=== PATIENT | male | born 1990 | race Caucasian/White ===

== ENCOUNTER 2018-02-05 13:41 | Emergency (ER) | payer SELFPAY ==
[~2018-02-05] VITALS: Ht 172.7 cm; Wt 108.0 kg
[2018-02-05 13:52] VITALS: Ht 172.7 cm; Wt 108.0 kg
[2018-02-05 15:12] LABS: BASOPHIL % 0.4 % (0-2); PLATELET COUNT 213 x10^3mcL (130-400); RED CELL DISTRIBUTION WIDTH 13.4 % (11.5-14.5)
[2018-02-05 15:15] LABS: CALCIUM 9.2 mg/dL (8.5-10.1); CARBON DIOXIDE 28.8 mmol/L (21-32); CHLORIDE SERUM 103 mmol/L (98-107); GFR1 > 60 mL/min; GLUCOSE SERUM 91 mg/dL (74-106); POTASSIUM SERUM 4.5 mmol/L (3.5-5.1); SODIUM SERUM 139 mmol/L (136-145)
[2018-02-05 15:20] LABS: ALBUMIN 3.8 g/dL (3.4-5.0); ALKALINE PHOSPHATASE 92 U/L (46-116); ALT/SGPT 48 U/L (16-63); AST/SGOT 21 U/L (15-37); BILIRUBIN TOTAL 0.7 mg/dL (0.20-1.00); LIPASE 75 IU/L (73-393)
[2018-02-05 15:21] LABS: TOTAL PROTEIN, SERUM 8.5 g/dL (6.4-8.2)
[2018-02-05 16:00] VITALS: BP 119/68
== END 2018-02-05 16:00 | disposition home or self-care (01) ==
LOC: ED 13:41
PROVIDERS: Emergency Medicine
DX: R07.82 Intercostal pain (principal)
CPT/HCPCS: 36415; Q0092